=== PATIENT | male | born 1985 | race Caucasian/White ===

== ENCOUNTER 2018-12-17 18:33 | Emergency (ER) | payer BC, OTHER ==
--- NOTE | 2018-12-17 19:15 | ER ---
Nurse's Notes [facility] Name: Pavel Perdomo III Age: 33 yrs Sex: Male : 1985 Arrival Date: 12/17/2018 Time: 18:37 Bed 28 Private MD: Diagnosis: Contusion of lip and oral cavity;Laceration without foreign body of lip-inner aspect Presentation: 12/17 18:43 Presenting complaint: Patient states: "I was helping my dad put up a fence about an aa5 hour ago and I took a hit to my upper lip with a metal pole". Denies LOC. Transition of care: patient was not received from another setting of care. Onset of symptoms was December 17, 2018. Risk Assessment: Do you want to hurt yourself or someone else? Patient reports no desire to harm self or others. Initial Sepsis Screen: Does the patient meet any 2 criteria? No. Patient's initial sepsis screen is negative. Does the patient have a suspected source of infection? No. Patient's initial sepsis screen is negative. Care prior to arrival: None. 18:43 Method Of Arrival: Ambulatory aa5 18:43 Acuity: EFRAIN 4 aa5 Historical: - Allergies: 18:44 PENICILLINS; aa5 - PMHx: 18:44 None; aa5 - PSHx: 18:44 None; aa5 - Immunization history:: Last tetanus immunization: unknown. - Social history:: Smoking status: Patient/guardian denies using tobacco. - Ebola Screening: : No symptoms or risks identified at this time. Screenin:03 Abuse screen: Denies threats or abuse. Denies injuries from another. mg2 19:05 Nutritional screening: No deficits noted. Tuberculosis screening: No symptoms or risk mg2 factors identified. Fall Risk None identified. Assessment: 19:05 General: Appears in no apparent distress. comfortable, Behavior is calm, cooperative. mg2 Pain: Complains of pain in mouth Pain does not radiate. Pain currently is 4 out of 10 on a pain scale. Quality of pain is described as aching, Pain began 2 hours ago. Is intermittent. Neuro: Level of Consciousness is awake, alert, obeys commands, Oriented to person, place, time, situation. Cardiovascular: Capillary refill < 3 seconds Patient's skin is warm and dry. Respiratory: Airway is patent Respiratory effort is even, unlabored, Respiratory pattern is regular, symmetrical. GI: No signs and/or symptoms were reported involving the gastrointestinal system. : No signs and/or symptoms were reported regarding the genitourinary system. EENT: upper lip trauma. Derm: Skin is intact, is healthy with good turgor, Skin is pink, warm \\T\\ dry. normal. Musculoskeletal: Circulation, motion, and sensation intact. Capillary refill < 3 seconds. Injury Description: pain and swelling. 19:40 Reassessment: Patient appears in no apparent distress at this time. Patient is alert, ca1 oriented x 3, equal unlabored respirations, skin warm/dry/pink. Vital Signs: 18:44 BP 163 / 100; Pulse 93; Resp 16 S; Temp 98.2(TE); Pulse Ox 99% on R/A; Weight 99.79 kg aa5 (R); Height 6 ft. 2 in. (187.96 cm) (R); Pain 5/10; 19:40 BP 140 / 97; Pulse 97; Resp 16 S; Temp 98(O); Pulse Ox 98% on R/A; ca1 18:44 Body Mass Index 28.25 (99.79 kg, 187.96 cm) aa5 ED Course: 18:37 Patient arrived in ED. mr 18:44 Triage completed. aa5 18:44 Arm band placed on. aa5 18:55 [facility]od[facility]. snw 18:55 Eron Garcia MD is Attending Physician. snw 19:01 Deon Carrizales RN is Primary Nurse. mg2 19:09 Patient has correct armband on for positive identification. mg2 19:09 No provider procedures requiring assistance completed. Patient did not have IV access mg2 during this emergency room visit. Administered Medications: 19:24 Drug: Tetanus-Diphtheria Toxoid Adult 0.5 ml {Pants Presser: [facility]. Exp: ca1 09/25/2020. Lot #: [id number]. } Route: IM; Site: left deltoid; 19:24 Drug: Clindamycin 300 mg Route: PO; ca1 Outcome: 19:14 Discharge ordered by . snw 19:44 Discharged to home ambulatory. ca1 19:44 Condition: stable 19:44 Discharge instructions given to patient, Instructed on discharge instructions, follow up and referral plans. Demonstrated understanding of instructions, follow-up care, medications, Prescriptions given X 3. 19:45 Patient left the ED. ca1 Signatures: Sheri Apodaca, GAEL-C ORTHOTIST/PROSTHETIST-Yolanda English TrellEileen, RN RN aa5 Deon Carrizales RN RN mg2 Barbie Rosales RN RN ca1
--- NOTE | 2018-12-17 19:15 | EDPHYS ---
Physician Documentation [facility] Name: Pavel Perdomo III Age: 33 yrs Sex: Male : 1985 Arrival Date: 12/17/2018 Time: 18:37 Bed 28 Private MD: ED Physician Eron Garcia HPI: 12/17 19:35 This 33 yrs old Male presents to ER via Ambulatory with complaints of Lips snw Swelling. 19:35 The patient presents with swelling. The problem is located in the upper vermilion snw border and mouth. Onset: The symptoms/episode began/occurred suddenly, just prior to arrival. Duration: The symptoms are continuous. Associated signs and symptoms: The patient has no apparent associated signs or symptoms. Severity of symptoms: At their worst the symptoms were mild. The patient has not experienced similar symptoms in the past. The patient has not recently seen a physician. Pt states he was helping with a fence and a metal pole slipped and struck him in the left upper lip. Historical: - Allergies: 18:44 PENICILLINS; aa5 - PMHx: 18:44 None; aa5 - PSHx: 18:44 None; aa5 - Immunization history:: Last tetanus immunization: unknown. - Social history:: Smoking status: Patient/guardian denies using tobacco. - Ebola Screening: : No symptoms or risks identified at this time. ROS: 19:35 Constitutional: Negative for fever, chills, and weight loss, Eyes: Negative for injury, snw pain, redness, and discharge, Neck: Negative for injury, pain, and swelling, Cardiovascular: Negative for chest pain, palpitations, and edema, Respiratory: Negative for shortness of breath, cough, wheezing, and pleuritic chest pain, Abdomen/GI: Negative for abdominal pain, nausea, vomiting, diarrhea, and constipation, Back: Negative for injury and pain, : Negative for injury, bleeding, discharge, and swelling, MS/Extremity: Negative for injury and deformity, Skin: Negative for injury, rash, and discoloration, Neuro: Negative for headache, weakness, numbness, tingling, and seizure. 19:35 ENT: Positive for injury or acute deformity, abrasion, laceration. Exam: 19:27 Constitutional: This is a well developed, well nourished patient who is awake, alert, snw and in no acute distress. Eyes: Pupils equal round and reactive to light, extra-ocular motions intact. Lids and lashes normal. Conjunctiva and sclera are non-icteric and not injected. Cornea within normal limits. Periorbital areas with no swelling, redness, or edema. ENT: Nares patent. No nasal discharge, no septal abnormalities noted. Tympanic membranes are normal and external auditory canals are clear. Oropharynx with no redness, swelling, or masses, exudates, or evidence of obstruction, uvula midline. Mucous membranes moist. Neck: Trachea midline, no thyromegaly or masses palpated, and no cervical lymphadenopathy. Supple, full range of motion without nuchal rigidity, or vertebral point tenderness. No Meningismus. Chest/axilla: Normal chest wall appearance and motion. Nontender with no deformity. No lesions are appreciated. Cardiovascular: Regular rate and rhythm with a normal S1 and S2. No gallops, murmurs, or rubs. Normal PMI, no JVD. No pulse deficits. Respiratory: Lungs have equal breath sounds bilaterally, clear to auscultation and percussion. No rales, rhonchi or wheezes noted. No increased work of breathing, no retractions or nasal flaring. Abdomen/GI: Soft, non-tender, with normal bowel sounds. No distension or tympany. No guarding or rebound. No evidence of tenderness throughout. Back: No spinal tenderness. No costovertebral tenderness. Full range of motion. Skin: Warm, dry with normal turgor. Normal color with no rashes, no lesions, and no evidence of cellulitis. MS/ Extremity: Pulses equal, no cyanosis. Neurovascular intact. Full, normal range of motion. Neuro: Awake and alert, GCS 15, oriented to person, place, time, and situation. Cranial nerves II-XII grossly intact. Motor strength 5/5 in all extremities. Sensory grossly intact. Cerebellar exam normal. Normal gait. Psych: Awake, alert, with orientation to person, place and time. Behavior, mood, and affect are within normal limits. 19:27 Head/face: Noted is abrasion(s), that are moderate, of the upper vermilion border, contusion, that is deep, of the upper vermilion border, a laceration(s), that is linear, 1 cm(s), of the mouth- inner aspect or left inside upper lip. Vital Signs: 18:44 BP 163 / 100; Pulse 93; Resp 16 S; Temp 98.2(TE); Pulse Ox 99% on R/A; Weight 99.79 kg aa5 (R); Height 6 ft. 2 in. (187.96 cm) (R); Pain 5/10; 19:40 BP 140 / 97; Pulse 97; Resp 16 S; Temp 98(O); Pulse Ox 98% on R/A; ca1 18:44 Body Mass Index 28.25 (99.79 kg, 187.96 cm) aa5 MDM: 18:55 Patient medically screened. snw 19:33 Data reviewed: vital signs, nurses notes. Data interpreted: Pulse oximetry: on room air snw is 99 %. Interpretation: normal. Counseling: I had a detailed discussion with the patient and/or guardian regarding: the historical points, exam findings, and any diagnostic results supporting the discharge/admit diagnosis, the need for outpatient follow up, to return to the emergency department if symptoms worsen or persist or if there are any questions or concerns that arise at home. Special discussion: I have referred the patient to see his PCP for further evaluation of high blood pressure. Based on the history and exam findings, there is no indication for further emergent testing or inpatient evaluation. I discussed with the patient/guardian the need to see the primary care provider for further evaluation of the symptoms. Administered Medications: 19:24 Drug: Tetanus-Diphtheria Toxoid Adult 0.5 ml {Loading Checker: [employer]. Exp: ca1 09/25/2020. Lot #: [id number]. } Route: IM; Site: left deltoid; 19:24 Drug: Clindamycin 300 mg Route: PO; ca1 Disposition: 12/17/18 19:14 Discharged to Home. Impression: Contusion of lip and oral cavity, Laceration without foreign body of lip - inner aspect. - Condition is Stable. - Discharge Instructions: Abrasion, Hypertension, Nonsutured Laceration Care. - Prescriptions for chlorhexidine gluconate 0.12 % Mucous Membrane mouthwash - place 15 milliliter by MUCOUS MEMBRANE route 2 times per day after brushing teeth, swish in mouth for 30 seconds then spit out; 480 milliliter. Clindamycin HCl 300 mg Oral Capsule - take 1 capsule by ORAL route every 8 hours for 7 days; 21 capsule. Tylenol- Codeine #3 300-30 mg Oral Tablet - take 2 tablets by ORAL route every 6 hours As needed; 14 tablet. - Medication Reconciliation Form, Thank You Letter, Antibiotic Education, Prescription Opioid Use form. - Follow up: Private Physician; When: 1 week; Reason: Recheck today's complaints, Continuance of care, Re-evaluation by your physician. Follow up: Emergency Department; When: As needed; Reason: Worsening of condition. Addendum: 12/20/2018 11:53 Co-signature as Attending Physician, Eron Garcia MD I agree with the assessment and k dr plan of care. Signatures: Eron Garcia MD MD [facility] Sheri Apodaca, METAL REFINER-C METAL REFINER-Csnw Eileen Cai, RN RN aa5 AcBarbie bloom RN RN ca1 Corrections: (The following items were deleted from the chart) 12/17 19:45 19:14 12/17/2018 19:14 Discharged to Home. Impression: Contusion of lip and oral ca1 cavity; Laceration without foreign body of lip - inner aspect. Condition is Stable. Forms are Medication Reconciliation Form, Thank You Letter, Antibiotic Education, Prescription Opioid Use. Follow up: Private Physician; When: 1 week; Reason: Recheck today's complaints, Continuance of care, Re-evaluation by your physician. Follow up: Emergency Department; When: As needed; Reason: Worsening of condition. snw
[2018-12-17] MEDS ORDERED: TETANUS & DIPHTHERIA TOX,ADULT 0.5 ML VIAL ONE (19:35)
[2018-12-17] MEDS ORDERED: CLINDAMYCIN HCL 150 MG CAP ONE (19:35)
== END 2018-12-17 19:45 | disposition home or self-care (01) ==
LOC: ER 18:33
DX: S01.511A Laceration without foreign body of lip, initial encounter (principal); W22.8XXA Striking against or struck by other objects, initial encounter; Y93.89 Activity, other specified; Y92.9 Unspecified place or not applicable; Z23 Encounter for immunization; Z88.0 Allergy status to penicillin
CPT/HCPCS: 90471; 90714; 99283